=== PATIENT | male | born 1965 | race Hispanic/Latino ===

== ENCOUNTER 2021-09-17 19:05 | Emergency (ER) | payer MEDICARE ==
[~2021-09-17] VITALS: Ht 165.1 cm; Wt 99.8 kg
[2021-09-17] MEDS ORDERED: SODIUM CHLORIDE 0.9% 1000ML 1,000 ML IV STA (19:09)
[2021-09-17] MEDS ORDERED: MECLIZINE HCL 12.5 MG TAB PO STA (19:22)
[2021-09-17 19:42] LABS: BASOPHILS # (AUTO) 0.1 (0.0-0.1); BASOPHILS % 0.9 % (0.0-1.0); EOSINOPHILS # (AUTO) 0.2 (0.0-0.4); EOSINOPHILS % 1.6 % (0.0-6.0); HEMATOCRIT 41.1 % (38.2-49.6); HEMOGLOBIN 13.7 g/dL (14.0-18.0); LYMPHOCYTES # (AUTO) 2.3 (1.0-3.2); LYMPHOCYTES % 24.6 % (18.0-39.1); MEAN CORPUSCULAR HEMOGLOBIN 30.5 pg (28-32); MEAN CORPUSCULAR HGB CONC 33.3 g/dL (31-35); MEAN CORPUSCULAR VOLUME 91.5 fL (81-99); MONOCYTES # (AUTO) 0.5 (0.2-0.8); MONOCYTES % 5.5 % (4.4-11.3); NEUTROPHILS # (AUTO) 6.2 (2.1-6.9); NEUTROPHILS % 67.2 % (38.7-80.0); PLATELET COUNT 238 x10e3/uL (140-360); RED BLOOD COUNT 4.49 x10e6/uL (4.3-5.7); RED CELL DISTRIBUTION WIDTH 12.4 % (11.7-14.4)
[2021-09-17 19:59] LABS: ALANINE AMINOTRANSFERASE 24 IU/L (0-55); ALBUMIN 4.1 g/dL (3.5-5.0); ALBUMIN/GLOBULIN RATIO 1.1 (0.8-2.0); ALKALINE PHOSPHATASE 53 IU/L (40-150); ANION GAP 16.3 mmol/L (8-16); BLOOD UREA NITROGEN 23 mg/dL (7-26); BUN/CREATININE RATIO 18 (6-25); CARBON DIOXIDE 28 mmol/L (22-29); CHLORIDE 105 mmol/L (98-107); CREATINE KINASE 118 IU/L (30-200); CREATININE, SERUM 1.27 mg/dL (0.72-1.25); EST GLOMERULAR FILTRATION RATE 59 ML/MIN (60-); GLUCOSE 128 mg/dL (74-118); POTASSIUM 4.3 mmol/L (3.5-5.1); SODIUM 145 mmol/L (136-145)
[2021-09-17] MEDS ORDERED: MECLIZINE HCL12.5 MG PO ×2 (20:40→20:41)
[2021-09-17 21:35] VITALS: BP 154/92
[2021-09-18] MEDS ORDERED: IOPAMIDOL 370 MG/ML 100 ML INFUS..BTL INJ ONE (06:05)
[2021-09-18] MEDS ORDERED: SODIUM CHLORIDE 0.9% 100 ML ONE (06:05)
== END 2021-09-17 21:15 | disposition home or self-care (01) ==
LOC: ER 19:08
DX: R42 Dizziness and giddiness (principal); R53.1 Weakness; R26.81 Unsteadiness on feet; I10 Essential (primary) hypertension; R61 Generalized hyperhidrosis
CPT/HCPCS: 36415; 70496; 70498; 71045; 80053; 82140; 82550; 82553; 84484; 85025; 93005; 99284; J7030; J8597; J7050; Q9967

== ENCOUNTER 2023-12-16 15:02 | Emergency (ER) | payer MEDICARE ==
[~2023-12-16] VITALS: Ht 165.1 cm; Wt 93.9 kg
[~2023-12-16 15:02] MED LIST: MECLIZINE HCL12.5 MG PO
[2023-12-16 15:25] VITALS: PULSE 86; RESP 18; TEMP 97.8; O2SAT 95
[2023-12-16] MEDS: SODIUM CHLORIDE 0.9% 1000ML 1,000 ML IV ONE (15:47)
[2023-12-16] MEDS ORDERED: PROBIOTIC & AC1 EACH PO (16:33)
== END 2023-12-16 16:55 | disposition home or self-care (01) ==
LOC: FSED 15:08
DX: R19.7 Diarrhea, unspecified (principal); I10 Essential (primary) hypertension; E11.9 Type 2 diabetes mellitus without complications; E78.5 Hyperlipidemia, unspecified
CPT/HCPCS: 80048; 80076; 81003; 85025; 99284; J7030